=== PATIENT | male | born 1950 | race African-American/Black ===

== ENCOUNTER 2021-08-08 12:55 | Emergency (ER) | payer MEDICARE, MEDICAID ==
[~2021-08-08] VITALS: Ht 177.8 cm; Wt 100.0 kg
[2021-08-08] MEDS ORDERED: SODIUM CHLORIDE 0.9% 1,000 ML IV ONE (13:30)
[2021-08-08 13:52] LABS: BASOPHILS % 0.9 % (0.0-2.0); EOSINOPHILS % 2.7 % (0.0-5.0); HEMATOCRIT. 30.8 % (42.0-52.0); HEMOGLOBIN. 10.2 g/dL (14.0-18.0); LYMPHOCYTES % 25.5 % (20.0-50.0); MEAN CORPUSCULAR VOLUME 87.1 fL (80.0-94.0); MEAN PLATELET VOLUME 9.7 fl (7.4-10.4); MONOCYTES % 8.6 % (2.0-8.0); NEUTROPHILS % 62.3 % (40.0-76.0); PLATELET 189 x1000/uL (130-400); RED BLOOD CELL COUNT 3.53 mill/uL (4.7-6.1)
[2021-08-08 13:59] LABS: CHLORIDE 116 mEq/L (98-107)
[2021-08-08] MEDS ORDERED: DEXTROSE 50% WATER 50ML SYRINGE IV ONE (14:15)
[2021-08-08] MEDS ORDERED: DEXT 5% WATER 500 ML IV ONE (14:15)
[2021-08-08] MEDS ORDERED: DEXT 10% WATER 1,000 ML IV ONE (16:15)
[2021-08-08 19:53] VITALS: BP 152/105
== END 2021-08-08 19:57 | disposition left against medical advice (07) ==
LOC: ER 12:55 → CANRESERV 17:52 → ENRESERV 17:52 → ER 19:57 → CANBEDREQ 20:05
DX: E11.649 Type 2 diabetes mellitus with hypoglycemia without coma (principal); G93.41 Metabolic encephalopathy; I10 Essential (primary) hypertension; E78.00 Pure hypercholesterolemia, unspecified; Z60.2 Problems related to living alone; Z98.890 Other specified postprocedural states
CPT/HCPCS: 36415; 71045; 80053; 82962; 85025; 93005; 96361; 96374; 99291; J7030; J7060